=== PATIENT | female | born 1965 | race American Indian/Alaskan Native ===

== ENCOUNTER 2019-03-04 19:41 | Emergency (ER) | payer SELFPAY ==
--- NOTE | 2019-03-04 20:25 | Event Note ---
ED Screening Note Date of service: 03/04/19 ED Screening Note: This initial assessment/diagnostic orders/clinical plan/treatment(s) is/are subject to change based on patients health status, clinical progression and re- assessment by fellow clinical providers in the ED. Further treatment and workup at subsequent clinical providers discretion. Patient/guardian urged not to elope from the ED as their condition may be serious if not clinically assessed and managed. Initial orders include: 53yo BF states she has experienced R side facial swelling after she ate a meal of Cajun turkey, stuffing and macaroni and cheese that she purchased. She states that she feels light-headed, cool and clammy.
--- NOTE | 2019-03-04 21:26 | Emergency Department Report ---
ED ENT HPI - General Chief complaint: Dental/Oral Stated complaint: RT SIDE FACIAL SWELLING Time Seen by Provider: 03/04/19 21:04 Source: patient, family Mode of arrival: Ambulatory Limitations: No Limitations - History of Present Illness Initial comments: pt is a 53-year-old female presents emergency room with complaints of right- sided neck swelling that began today around 2 PM. She states it began after eating lunch. She denies eating anything new. She denies any dental pain, fever, chills, nausea, vomiting, shortness of breath, sensation of throat closing. She denies this ever happening in the past. She has a past medical history of chronic back pain, hypertension. She denies any allergies medications or any known allergies at all. - Related Data Previous Rx's Medication Instructions Recorded Last Taken Type Amoxicillin/Potassium Clav 1 each PO BID 7 Days #14 tablet 03/05/19 Unknown Rx [Augmentin 875-125 Tablet] Allergies Allergy/AdvReac Type Severity Reaction Status Date / Time No Known Allergies Allergy Unverified 03/04/19 20:01 ED Dental HPI - General Chief complaint: Dental/Oral Stated complaint: RT SIDE FACIAL SWELLING Time Seen by Provider: 03/04/19 21:04 Source: patient, family Mode of arrival: Ambulatory Limitations: No Limitations - Related Data Previous Rx's Medication Instructions Recorded Last Taken Type Amoxicillin/Potassium Clav 1 each PO BID 7 Days #14 tablet 03/05/19 Unknown Rx [Augmentin 875-125 Tablet] Allergies Allergy/AdvReac Type Severity Reaction Status Date / Time No Known Allergies Allergy Unverified 03/04/19 20:01 ED Review of Systems ROS: Stated complaint: RT SIDE FACIAL SWELLING Other details as noted in HPI Comment: All other systems reviewed and negative ED Past Medical Hx - Past Medical History Previous Medical History?: Yes Hx Hypertension: Yes Additional medical history: Cardiac Disease, Chronic Back pain - Surgical History Past Surgical History?: Yes Additional Surgical History: Cardiac Ablation - Social History Smoking Status: Current Some Day Smoker - Medications Home Medications: Home Medications Medication Instructions Recorded Confirmed Last Taken Type Amoxicillin/Potassium Clav 1 each PO BID 7 Days #14 tablet 03/05/19 Unknown Rx [Augmentin 875-125 Tablet] ED Physical Exam - General Limitations: No Limitations General appearance: alert, in no apparent distress - Head Head exam: Present: atraumatic, normocephalic - Eye Eye exam: Present: normal appearance - ENT ENT exam: Present: normal orophraynx, mucous membranes moist, other (uvula is midline, no uvular edema, normal oropharynx, no TTP underneath the tongue or edema present) - Neck Neck exam: Present: other (edema present to the right submandibular region, no erythema, no increased warmth, no drainage) - Respiratory Respiratory exam: Present: normal lung sounds bilaterally. Absent: respiratory distress, wheezes, rales, rhonchi, stridor, chest wall tenderness, accessory muscle use, decreased breath sounds, prolonged expiratory - Cardiovascular Cardiovascular Exam: Present: regular rate, normal rhythm, normal heart sounds. Absent: systolic murmur, diastolic murmur, rubs, gallop - Neurological Exam Neurological exam: Present: alert, oriented X3 - Psychiatric Psychiatric exam: Present: normal affect, normal mood - Skin Skin exam: Present: warm, dry, intact ED Course Vital Signs 03/04/19 03/04/19 03/04/19 19:55 20:12 20:21 Temperature 98.9 F 97.6 F Pulse Rate 75 66 76 Respiratory 14 18 18 Rate Blood Pressure 181/96 90/52 Blood Pressure 179/87 [Right] O2 Sat by Pulse 100 99 100 Oximetry 03/04/19 03/05/19 21:05 00:35 Temperature 98.2 F 98.2 F Pulse Rate 64 72 Respiratory 16 16 Rate Blood Pressure Blood Pressure 172/85 152/67 [Right] O2 Sat by Pulse 98 100 Oximetry ED Medical Decision Making - Lab Data Result diagrams: 03/04/19 21:35 03/04/19 21:35 Lab Results 03/04/19 03/04/19 Range/Units 21:35 21:35 WBC 6.8 (4.5-11.0) K/mm3 RBC 4.65 (3.65-5.03) M/mm3 Hgb 11.0 (10.1-14.3) gm/dl Hct 34.6 (30.3-42.9) % MCV 74 L (79-97) fl MCH 24 L (28-32) pg MCHC 32 (30-34) % RDW 18.8 H (13.2-15.2) % Plt Count 245 (140-440) K/mm3 Lymph % (Auto) 30.2 (13.4-35.0) % Gove % (Auto) 10.1 H (0.0-7.3) % Eos % (Auto) 2.0 (0.0-4.3) % Baso % (Auto) 1.0 (0.0-1.8) % Lymph # 2.1 (1.2-5.4) K/mm3 Gove # 0.7 (0.0-0.8) K/mm3 Eos # 0.1 (0.0-0.4) K/mm3 Baso # 0.1 (0.0-0.1) K/mm3 Seg Neutrophils % 56.7 (40.0-70.0) % Seg Neutrophils # 3.9 (1.8-7.7) K/mm3 Sodium 140 (137-145) mmol/L Potassium 3.3 L (3.6-5.0) mmol/L Chloride 99.8 (98-107) mmol/L Carbon Dioxide 26 (22-30) mmol/L Anion Gap 18 mmol/L BUN 17 (7-17) mg/dL Creatinine 0.6 L (0.7-1.2) mg/dL Estimated GFR > 60 ml/min BUN/Creatinine Ratio 28 % Glucose 104 H (65-100) mg/dL Calcium 9.3 (8.4-10.2) mg/dL - Radiology Data Radiology results: report reviewed CT neck w con INDICATION / CLINICAL INFORMATION: 53 years Female; right sided neck swelling in the submandibular. TECHNIQUE: Contiguous thin cut axial images obtained through the neck following IV co ntrast. Sagittal and coronal reconstructions performed by the technologist. All CT scans at this [facility] ation are performed using CT dose reduction for ALARA by means of automated exposure control. COMPARISON: None available. FINDINGS: There are notable inflammatory changes involving the right submand ibular gland with enlargement and mild relative increased attenuation. Furthermore, there is also prominent surrounding soft tissue edema as well as thickening of the overlying right platysma muscle. There is a small 2-3 millimeter focus of calcification within the right anterior floor of mouth in the expected region of the anterior most submandibular duct compatible with a small sialolith and associated obstruction. There is no clear evidence of rim-enhancing fluid collection to indicate abscess on the current exam. The left submandibular gland is unremarkable. MUCOSAL SPACE: There is notable prominence of the soft tissues along the base of tongue with effacement of the vallecula. The findings are nonspecific though may reflect lymphoid hypertrophy. The epiglottis is appropriate in size. There is also effacement of the right piriform sinus which may be related to the edematous changes related to the right 70 better gland. LYMPH NODES: There are multiple scattered lymph nodes, most notably within the right jugulodigastric region with the largest measuring 0.9 cm in greatest short axis dimension. These nodes are likely reactive. SALIVARY GLANDS: The parotid glands demonstrate symmetric attenuation without calcification. There is enlargement of the right 70 better gland as detailed above. THYROID GLAND: Unremarkable. PARANASAL SINUSES: There is focal opacification along the posterior, inferior right sphenoid sinus. SPINE: There are moderate degenerative disc changes at C5-6 and C6-7. VASCULAR STRUCTURES: Vascular structures are grossly normal in appearance. Surrounding soft tissues are otherwise grossly normal. IMPRESSION: 1. There are prominent inflammatory changes involving the right submandibular gland and surrounding soft tissues with small, 2-3 mm sialolith along the anteriormost right submandibular duct. Signer Name: Mu Blackwell MD Signed: 03/04/2019 11:52 PM Workstation Name: [id number] Transcribed By: MR Dictated By: Mu Blackwell MD Electronically Authenticated By: Mu Blackwell MD Signed Date/Time: 03/04/19 9014 - Medical Decision Making pt is a 53-year-old female presents emergency room with complaints of right- sided neck swelling that began today around 2 PM. She states it began after eating lunch. She denies eating anything new. She denies any dental pain, fever, chills, nausea, vomiting, shortness of breath, sensation of throat closing. She denies this ever happening in the past. She has a past medical history of chronic back pain, hypertension. She denies any allergies medications or any known allergies at all. vitals are stable. on exam: uvula is midline, no uvular edema, normal oropharynx, no TTP underneath the tongue or edema present, edema present to the right submandibular region, no erythema, no increased warmth, no drainage. labs are stable, mild hypokalemia discussed dietary replacement options with pt. CT neck: 1. There are prominent inflammatory changes involving the right submandibular gland and surrounding soft tissues with small, 2-3 mm sialolith along the anteriormost right submandibular duct. Patient given prescription for Augmentin for sialoadenitis. advised pt to Please take medication as prescribed. Increase your fluid intake over the next several days. Please use lemon drops or vitamin C lozenges. follow-up with an ear nose and throat doctor in the next 3-5 days. Return to the emergency room for any new or worsening symptoms. - Differential Diagnosis sialoadenitis, mumps, abscess, mass Critical care attestation.: If time is entered above; I have spent that time in minutes in the direct care of this critically ill patient, excluding procedure time. ED Disposition Clinical Impression: Sialoadenitis of submandibular gland Disposition: TO HOME OR SELFCARE Is pt being admited?: No Does the pt Need Aspirin: No Condition: Stable Instructions: Sialoadenitis (ED) Additional Instructions: Please take medication as prescribed. Increase your fluid intake over the next several days. Please use lemon drops or vitamin C lozenges. follow-up with an ear nose and throat doctor in the next 3-5 days. Return to the emergency room for any new or worsening symptoms. Prescriptions: Amoxicillin/Potassium Clav [Augmentin 875-125 Tablet] 1 each PO BID 7 Days #14 tablet Referrals: KENNY CARR MD [Staff Physician] - 3-5 Days BENJAMIN MORALES MD [Staff Physician] - 3-5 Days Time of Disposition: 00:02 Print Language: COMORAN
[2019-03-04 21:45] LABS: Basophils # (Auto) 0.1 K/mm3 (0.0-0.1); Eosinophils # (Auto) 0.1 K/mm3 (0.0-0.4); Hematocrit 34.6 % (30.3-42.9); Lymphocytes # (Auto) 2.1 K/mm3 (1.2-5.4); Lymphocytes % (Auto) 30.2 % (13.4-35.0); Mean Corpuscular HGB Conc 32 % (30-34); Mean Corpuscular Volume 74 fl (79-97); Monocytes # (Auto) 0.7 K/mm3 (0.0-0.8); Monocytes % (Auto) 10.1 % (0.0-7.3); Platelet Count 245 K/mm3 (140-440); Red Blood Count 4.65 M/mm3 (3.65-5.03); Red Cell Distribution Width 18.8 % (13.2-15.2)
[2019-03-04 22:05] LABS: BUN/Creatinine Ratio 28; Blood Urea Nitrogen 17 mg/dL (7-17); Calcium 9.3 mg/dL (8.4-10.2); Hemolysis Index 23
--- NOTE | 2019-03-04 23:56 | Cat Scan Report ---
CT neck w con INDICATION / CLINICAL INFORMATION: 53 years Female; right sided neck swelling in the submandibular. TECHNIQUE: Contiguous thin cut axial images obtained through the neck following IV contrast. Sagittal and otoole l reconstructions performed by the technologist. All CT scans at this location are performed using CT dose reduction for ALARA by means of automated exposure control. COMPARISON: None available. FINDINGS: There are notable inflammatory changes involving the right submandibular gland with enlarge ment and mild relative increased attenuation. Furthermore, there is also prominent surrounding soft t issue edema as well as thickening of the overlying right platysma muscle. There is a small 2-3 millim eter focus of calcification within the right anterior floor of mouth in the expected region of the an terior most submandibular duct compatible with a small sialolith and associated obstruction. There is no clear evidence of rim-enhancing fluid collection to indicate abscess on the current exam. The lef t submandibular gland is unremarkable. MUCOSAL SPACE: There is notable prominence of the soft tissues along the base of tongue with effaceme nt of the vallecula. The findings are nonspecific though may reflect lymphoid hypertrophy. The epiglo ttis is appropriate in size. There is also effacement of the right piriform sinus which may be relate d to the edematous changes related to the right 70 better gland. LYMPH NODES: There are multiple scattered lymph nodes, most notably within the right jugulodigastric region with the largest measuring 0.9 cm in greatest short axis dimension. These nodes are likely anna ctive. SALIVARY GLANDS: The parotid glands demonstrate symmetric attenuation without calcification. There is enlargement of the right 70 better gland as detailed above. THYROID GLAND: Unremarkable. PARANASAL SINUSES: There is focal opacification along the posterior, inferior right sphenoid sinus. SPINE: There are moderate degenerative disc changes at C5-6 and C6-7. VASCULAR STRUCTURES: Vascular structures are grossly normal in appearance. Surrounding soft tissues are otherwise grossly normal. IMPRESSION: 1. There are prominent inflammatory changes involving the right submandibular gland and surrounding s oft tissues with small, 2-3 mm sialolith along the anteriormost right submandibular duct. Signer Name: Mu Blackwell MD Signed: 03/04/2019 11:52 PM Workstation Name: [id number]
[2019-03-05 01:02] VITALS: BP 152/67
== END 2019-03-05 00:37 | disposition home or self-care (01) ==
LOC: ED 19:41
DX: K11.21 Acute sialoadenitis (principal); I10 Essential (primary) hypertension; F17.200 Nicotine dependence, unspecified, uncomplicated; G89.29 Other chronic pain
CPT/HCPCS: 36415; 70491; 80048; 85025; 99284; Q9967

== ENCOUNTER 2019-06-14 11:31 | Emergency (ER) | payer SELFPAY ==
[2019-06-14 11:51] VITALS: BP 164/74
--- NOTE | 2019-06-14 11:52 | Event Note ---
ED Screening Note Date of service: 06/14/19 Time: 11:48 ED Screening Note: 53 y o female presents to ED cc of right sided dental pain x 4 days no problem swallowing This initial assessment/diagnostic orders/clinical plan/treatment(s) is/are subject to change based on patients health status, clinical progression and re- assessment by fellow clinical providers in the ED. Further treatment and workup at subsequent clinical providers discretion. Patient/guardian urged not to elope from the ED as their condition may be serious if not clinically assessed and managed. Initial orders include: Dr Price
[2019-06-14] MEDS ORDERED: HYDROmorphone 1 MG/1 ML INJ ONE (18:30)
== END 2019-06-14 11:55 | disposition left against medical advice (07) ==
LOC: ED 11:31
DX: R55 Syncope and collapse (principal); Z53.21 Procedure and treatment not carried out due to patient leaving prior to being seen by health care provider
CPT/HCPCS: J1170

== ENCOUNTER 2020-05-05 17:14 | Emergency (ER) | payer SELFPAY ==
[2020-05-05 17:19] VITALS: BP 161/82
--- NOTE | 2020-05-05 17:28 | Emergency Department Report ---
ED ENT HPI - General Chief complaint: Dental/Oral Stated complaint: LFT SIDE FACE SWELLONG/PAIN Time Seen by Provider: 05/05/20 17:20 Source: patient Mode of arrival: Ambulatory Limitations: No Limitations - History of Present Illness Initial comments: 54-year-old -[place] female presents to the emergency room for left- sided facial swelling that she noticed at 2 AM this morning when she went to yarn. Patient states that she had difficulty yarning. Patient reports that she is aware that she has a broken tooth in the left upper jaw but has no pain. Patient states that her insurance kicks in on Thursday and she is able to go to the dentist next week. Patient denies any fever chills denies any headache no difficulty swallowing. Does have a past medical history of hypertension. MD complaint: other (Left side facial swelling) -: This morning Time: 02:00 Consistency: constant Improves with: none Worsens with: other (yarning) Context- Dental: poor dental care - Related Data Previous Rx's Medication Instructions Recorded Last Taken Type Acetaminophen/Codeine [Tylenol 1 tab PO Q6H #10 tab 06/14/19 Unknown Rx /Codeine # 3 tab] Amoxicillin/Potassium Clav 1 each PO BID 7 Days #14 tablet 06/14/19 Unknown Rx [Augmentin 875-125 Tablet] Clindamycin [Clindamycin CAP] 300 mg PO Q8H 10 Days #30 cap 05/05/20 Unknown Rx Allergies Allergy/AdvReac Type Severity Reaction Status Date / Time No Known Allergies Allergy Unverified 03/04/19 20:01 ED Dental HPI - General Chief complaint: Dental/Oral Stated complaint: LFT SIDE FACE SWELLONG/PAIN Time Seen by Provider: 05/05/20 17:20 Source: patient Mode of arrival: Ambulatory Limitations: No Limitations - Related Data Previous Rx's Medication Instructions Recorded Last Taken Type Acetaminophen/Codeine [Tylenol 1 tab PO Q6H #10 tab 06/14/19 Unknown Rx /Codeine # 3 tab] Amoxicillin/Potassium Clav 1 each PO BID 7 Days #14 tablet 06/14/19 Unknown Rx [Augmentin 875-125 Tablet] Clindamycin [Clindamycin CAP] 300 mg PO Q8H 10 Days #30 cap 05/05/20 Unknown Rx Allergies Allergy/AdvReac Type Severity Reaction Status Date / Time No Known Allergies Allergy Unverified 03/04/19 20:01 ED Review of Systems ROS: Stated complaint: LFT SIDE FACE SWELLONG/PAIN Other details as noted in HPI Comment: All other systems reviewed and negative ED Past Medical Hx - Past Medical History Previous Medical History?: Yes Hx Hypertension: Yes Additional medical history: Cardiac Disease, Chronic Back pain - Surgical History Past Surgical History?: Yes Additional Surgical History: Cardiac Ablation - Social History Smoking Status: Current Some Day Smoker - Medications Home Medications: Home Medications Medication Instructions Recorded Confirmed Last Taken Type Acetaminophen/Codeine [Tylenol 1 tab PO Q6H #10 tab 06/14/19 Unknown Rx /Codeine # 3 tab] Amoxicillin/Potassium Clav 1 each PO BID 7 Days #14 tablet 06/14/19 Unknown Rx [Augmentin 875-125 Tablet] Clindamycin [Clindamycin CAP] 300 mg PO Q8H 10 Days #30 cap 05/05/20 Unknown Rx ED Physical Exam - General Limitations: No Limitations General appearance: alert, in no apparent distress - Head Head exam: Present: atraumatic, normocephalic - Eye Eye exam: Present: normal appearance - ENT ENT exam: Present: other (Left side facial swelling closer to the midline towards her nose.) - Neck Neck exam: Present: normal inspection, full ROM - Respiratory Respiratory exam: Absent: accessory muscle use - Cardiovascular Cardiovascular Exam: Present: regular rate, normal rhythm. Absent: systolic murmur, diastolic murmur, rubs, gallop - Back Exam Back exam: Present: normal inspection, full ROM - Neurological Exam Neurological exam: Present: alert, oriented X3, normal gait - Psychiatric Psychiatric exam: Present: normal affect, normal mood - Skin Skin exam: Present: warm, dry, intact, normal color. Absent: rash ED Course Vital Signs 05/05/20 17:18 Temperature 97.8 F Pulse Rate 84 Respiratory 18 Rate Blood Pressure 161/82 O2 Sat by Pulse 96 Oximetry ED Medical Decision Making - Medical Decision Making 54-year-old -[place] female presents to the emergency room for left- sided facial swelling that she noticed at 2 AM this morning when she went to yarn. Patient states that she had difficulty yarning. Patient reports that she is aware that she has a broken tooth in the left upper jaw but has no pain. Patient states that her insurance kicks in on Thursday and she is able to go to the dentist next week. Patient denies any fever chills denies any headache no difficulty swallowing. Does have a past medical history of hypertension. Patient replaced on clindamycin 300 mg every 8 hours x10 days. Critical care attestation.: If time is entered above; I have spent that time in minutes in the direct care of this critically ill patient, excluding procedure time. ED Disposition Clinical Impression: Dental infection Disposition: TO HOME OR SELFCARE Is pt being admited?: No Does the pt Need Aspirin: No Condition: Stable Instructions: Dental Abscess, [id number] Additional Instructions: Complete antibiotics as prescribed. You can take ibuprofen Tylenol or Aleve for any pain. I recommend ice not heat. Follow-up with the dental provider. Prescriptions: Clindamycin [Clindamycin CAP] 300 mg PO Q8H 10 Days #30 cap Referrals: [facility] [Outside] - 3-5 Days [facility] [Outside] - 3-5 Days Forms: Work/School Release Form(ED)
== END 2020-05-05 17:42 | disposition home or self-care (01) ==
LOC: ED 17:14
DX: K04.7 Periapical abscess without sinus (principal); I10 Essential (primary) hypertension; F17.200 Nicotine dependence, unspecified, uncomplicated; Z79.2 Long term (current) use of antibiotics; Z79.899 Other long term (current) drug therapy
CPT/HCPCS: 99282

== ENCOUNTER 2020-10-04 15:59 | Emergency (ER) | payer MEDICARE ==
[2020-10-04 16:55] LABS: Basophils % (Auto) 0.6 % (0.0-1.8); Eosinophils # (Auto) 0.1 K/mm3 (0.0-0.4); Eosinophils % (Auto) 1.3 % (0.0-4.3); Hematocrit 39.6 % (30.3-42.9); Hemoglobin 13.3 gm/dl (10.1-14.3); Lymphocytes # (Auto) 2.1 K/mm3 (1.2-5.4); Lymphocytes % (Auto) 32.8 % (13.4-35.0); Mean Corpuscular HGB Conc 34 % (30-34); Mean Corpuscular Volume 92 fl (79-97); Monocytes # (Auto) 0.6 K/mm3 (0.0-0.8); Monocytes % (Auto) 9.1 % (0.0-7.3); Platelet Count 294 K/mm3 (140-440); Red Blood Count 4.31 M/mm3 (3.65-5.03)
[2020-10-04 17:03] LABS: Red Cell Distribution Width 20.2 % (13.2-15.2)
[2020-10-04 17:04] LABS: Alanine Aminotransferase 59 units/L (7-56); Albumin 4.3 g/dL (3.9-5); BUN/Creatinine Ratio 15; Blood Urea Nitrogen 9 mg/dL (7-17); Hemolysis Index 38
--- NOTE | 2020-10-04 21:08 | Emergency Department Report ---
ED General Adult HPI - General Chief complaint: Recheck/Abnormal Lab/Rx Stated complaint: LOW POTASIUM PUI?: No Time Seen by Provider: 10/04/20 20:47 Source: patient Mode of arrival: Ambulatory Limitations: No Limitations - History of Present Illness Initial comments: Patient is a 55-year-old female that presents emergency room for low potassium. Patient states her pain management center to the emergency room for potassium of 2.7. Patient states she not have any symptoms. Patient dates she has a long history of low potassium. Patient states she has 20 mEq of potassium chloride at home. Patient is not taking potassium at this time. Patient states she is taking atenolol/chlorthalidone for her blood pressure. Patient is only 2 medications taking. patient denies chest pain. Patient denies shortness of breath. Patient denies muscle cramps. Patient denies fatigue. Patient denies any symptoms. Patient denies recent travel. Patient denies recent international travel. Patient denies exposure to the novel coronavirus. Patient denies sick contacts. Patient denies fever and chills. Patient denies cough. Patient denies diarrhea. Patient denies coming in contact with anybody with symptoms of the novel coronavirus. -: Sudden Severity scale (0 -10): 0 Improves with: none Worsens with: none Associated Symptoms: denies: confusion, chest pain, cough, diaphoresis, fever/chills, headaches, loss of appetite, malaise, nausea/vomiting, rash, seizure, shortness of breath, syncope, weakness Treatments Prior to Arrival: none - Related Data Previous Rx's Medication Instructions Recorded Last Taken Type Acetaminophen/Codeine [Tylenol 1 tab PO Q6H #10 tab 06/14/19 Unknown Rx /Codeine # 3 tab] Amoxicillin/Potassium Clav 1 each PO BID 7 Days #14 tablet 06/14/19 Unknown Rx [Augmentin 875-125 Tablet] Clindamycin [Clindamycin CAP] 300 mg PO Q8H 10 Days #30 cap 05/05/20 Unknown Rx Potassium Chloride [K-Dur] 20 meq PO BID 60 Days #30 tablet 10/04/20 Unknown Rx amLODIPine 5 mg PO DAILY 30 Days #30 tablet 10/04/20 Unknown Rx Allergies Allergy/AdvReac Type Severity Reaction Status Date / Time No Known Allergies Allergy Unverified 03/04/19 20:01 ED Review of Systems ROS: Stated complaint: LOW POTASIUM Other details as noted in HPI Constitutional: denies: chills, fever Eyes: denies: eye pain, eye discharge, vision change ENT: denies: ear pain, throat pain Respiratory: denies: cough, shortness of breath, wheezing Cardiovascular: denies: chest pain, palpitations Endocrine: no symptoms reported Gastrointestinal: denies: abdominal pain, nausea, diarrhea Genitourinary: denies: urgency, dysuria, discharge Musculoskeletal: denies: back pain, joint swelling, arthralgia Skin: denies: rash, lesions Neurological: denies: headache, weakness, paresthesias Psychiatric: denies: anxiety, depression Hematological/Lymphatic: denies: easy bleeding, easy bruising ED Past Medical Hx - Past Medical History Previous Medical History?: Yes Hx Hypertension: Yes Additional medical history: Cardiac Disease, Chronic Back pain - Surgical History Past Surgical History?: Yes Additional Surgical History: Cardiac Ablation - Family History Family history: no significant - Social History Smoking Status: Current Some Day Smoker Substance Use Type: None - Medications Home Medications: Home Medications Medication Instructions Recorded Confirmed Last Taken Type Acetaminophen/Codeine [Tylenol 1 tab PO Q6H #10 tab 06/14/19 Unknown Rx /Codeine # 3 tab] Amoxicillin/Potassium Clav 1 each PO BID 7 Days #14 tablet 06/14/19 Unknown Rx [Augmentin 875-125 Tablet] Clindamycin [Clindamycin CAP] 300 mg PO Q8H 10 Days #30 cap 05/05/20 Unknown Rx Potassium Chloride [K-Dur] 20 meq PO BID 60 Days #30 tablet 10/04/20 Unknown Rx amLODIPine 5 mg PO DAILY 30 Days #30 tablet 10/04/20 Unknown Rx ED Physical Exam - General Limitations: No Limitations General appearance: alert, in no apparent distress - Head Head exam: Present: atraumatic, normocephalic - Eye Eye exam: Present: normal appearance - ENT ENT exam: Present: mucous membranes moist - Neck Neck exam: Present: normal inspection - Respiratory Respiratory exam: Present: normal lung sounds bilaterally. Absent: respiratory distress, wheezes, rales - Cardiovascular Cardiovascular Exam: Present: regular rate, normal rhythm. Absent: systolic murmur, diastolic murmur, rubs, gallop - GI/Abdominal GI/Abdominal exam: Present: soft, normal bowel sounds - Rectal Rectal exam: Present: deferred - Extremities Exam Extremities exam: Present: normal inspection - Back Exam Back exam: Present: normal inspection - Neurological Exam Neurological exam: Present: alert, oriented X3 - Psychiatric Psychiatric exam: Present: normal affect, normal mood - Skin Skin exam: Present: warm, dry, intact, normal color. Absent: rash ED Course Vital Signs 10/04/20 10/04/20 10/04/20 16:11 20:50 21:30 Temperature 98.4 F Pulse Rate 74 89 87 Respiratory 18 18 18 Rate Blood Pressure Blood Pressure 162/89 202/114 189/108 [Right] O2 Sat by Pulse 99 100 98 Oximetry 10/04/20 10/04/20 21:34 21:56 Temperature Pulse Rate 89 Respiratory 18 Rate Blood Pressure 189/108 Blood Pressure 171/92 [Right] O2 Sat by Pulse 98 Oximetry - Reevaluation(s) Reevaluation #1: I discussed plan of care. Patient be given 40 mEq orally. 10/04/20 21:05 Reevaluation #2: Patient's repeat blood pressure was 199/110. Patient will be given 5 mg of amlodipine. 10/04/20 21:30 Reevaluation #3: Patient blood pressure much better. Patient denies symptoms. Patient denies headache. Patient denies blurry vision. Patient denies chest pain shortness of breath. I discussed all results and clinical findings with patient. I discussed plan of care with patient. Patient agrees with plan of care. Patient is stable for discharge. Patient will be discharged home. Patient given discharge instructions. Patient voiced understanding of discharge instructions. 10/04/20 22:30 ED Medical Decision Making - Lab Data Result diagrams: 10/04/20 16:21 10/04/20 19:20 - Medical Decision Making Patient is a 55-year-old female presents emergency room for low potassium. Patient was sent here by her pain management to be evaluated for her potassium being low. Patient potassium was 2.7 at her primary's office. Patient's potassium is 2.8 and repeated 2.9. Patient have any other symptoms. Patient given oral potassium. Patient also found to have elevated blood pressure. Patient given 5 mg of Norvasc. Patient blood pressure improved. Patient is stable for discharge. Patient not require any further emergency medical services or inpatient service. Patient given discharge instructions. - Differential Diagnosis Medication side effect, low potassium, hypertension Critical care attestation.: If time is entered above; I have spent that time in minutes in the direct care of this critically ill patient, excluding procedure time. ED Disposition Clinical Impression: Hypokalemia Hypertension Qualifiers: Hypertension type: primary hypertension Qualified Code(s): I10 - Essential (primary) hypertension Disposition: TO HOME OR SELFCARE Is pt being admited?: No Does the pt Need Aspirin: No Condition: Stable Instructions: Hypokalemia, Hypertension, Adult, [id number], Potassium Content of Foods, Managing Your Hypertension, Hypertension (ED) Additional Instructions: Patient to follow-up with primary care in 2 to 3 days. Patient to follow-up with flame annealing machine setter in 2 to 3 days. Patient to take 20 mEq twice a day of potassium. Patient to rest. Patient to increase water. Patient to avoid strenuous exercise or heavy lifting until cleared by primary care and flame annealing machine setter. Patient to take meds as directed. Patient to return to the ER if condition worsens, changes or new symptoms arise. Prescriptions: amLODIPine 5 mg PO DAILY 30 Days #30 tablet Potassium Chloride [K-Dur] 20 meq PO BID 60 Days #30 tablet Referrals: LYNN SAWYER MD [Staff Physician] - 2-3 Days BENJA POLANCO MD [Staff Physician] - 2-3 Days Time of Disposition: 22:30
[2020-10-04] MEDS ORDERED: POTASSIUM CHLORIDE ER 20 MEQ TAB PO ONE (21:10)
[2020-10-04] MEDS ORDERED: amLODIPine 5 MG TAB ONE (21:29)
[2020-10-04] MEDS ORDERED: amLODIPine 5 MG TAB PO ONE (21:31)
[2020-10-04 21:57] VITALS: BP 171/92
--- NOTE | 2020-10-06 09:47 | Electrocardiograph Report ---
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
--- NOTE | 2020-10-06 09:47 | Electrocardiograph Report ---
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
== END 2020-10-04 22:01 | disposition home or self-care (01) ==
LOC: ED 15:59
DX: E87.6 Hypokalemia (principal); I10 Essential (primary) hypertension; F17.200 Nicotine dependence, unspecified, uncomplicated; Z79.899 Other long term (current) drug therapy; Z98.890 Other specified postprocedural states
CPT/HCPCS: 36415; 80053; 84132; 85025; 93005

== ENCOUNTER 2022-01-01 14:45 | Emergency (ER) | payer MEDICARE | END 2022-01-01 18:38 | disposition left against medical advice (07) | LOC: ED 14:45 | DX: I10 Essential (primary) hypertension (principal); Z53.21 Procedure and treatment not carried out due to patient leaving prior to being seen by health care provider ==